=== PATIENT | male | born 1955 | race Caucasian/White ===

== ENCOUNTER 2016-07-03 18:34 | Observation (INO) | payer BC ==
[~2016-07-03] VITALS: Ht 190.5 cm; Wt 101.4 kg
--- NOTE | ~2016-07-03 | ECH ---
Transthoracic Echocardiography Report (TTE) Demographics Patient Name TIM BRIGHT Date of Study 07/04/2016 Patient Number [id number] Visit Number [id number] Date of 1955 Room Number 416 Accession Number [id number] Gender Male Age 60 year(s) Referring Ami Roman Rn Iv Therapy Morelia Campbell [facility] Physician Yamile Valdez MD Physician Interpreting Yamile Valdez Inpatient Auditor Physician MD Supervising Ordering Physician Ami Roman MD/P Nurse Stress Health Care / Medical Job Titles Conclusions Summary Technically fair exam. The estimated left ventricular ejection fraction is 60-65%. Mild left ventricular hypertrophy. The interatrial septum appears aneurysmal. There is no evidence of patent foramen ovale or atrial septal defect by color Doppler. The ascending aorta appears mildly dilated. The maximum diameter measures 3.57 cm. Procedure Type of Study TTE procedure:Echo Complete SF. Procedure Date Date: 07/04/2016 Start: 03:59 PM Technical Quality: Adequate visualization Indications:Atypical Chest Pain. Additional Indications:known PFO Appropriate Use Criteria: 9 Height: 75 inches Weight: 223 pounds BSA: 2.3 m Rhythm: Within normal limits HR: 63 bpm BP: 123/67 mmHg M-Mode/2D Measurements LV Diastolic Dimension: 4.91 cm LV Systolic Dimension: 3.39 cm LV Septum Diastolic: 1.18 cm LV PW Diastolic: 1.26 cm AO Root Dimension: 3.29 cm Cardiac Output: 4 l/min LA Dimension: 3.51 cm Cardiac Index: 1.74 l/min*m RV Diastolic Dimension: 2.95 cm LA volume index: 22 ml/m LVOT: 2.32 cm LVOT VTI: 15.03 cm RV Base: 4.3 cm LV Stroke volume: 63.5 ml RV Mid: 2.1 cm LV Stroke volume index: 27.61 ml/m Doppler Measurements AV Peak Velocity: 1 m/s MV Peak E-Wave: 0.56 m/s AV Peak Gradient: 4 mmHg MV Peak A-Wave: 0.53 m/s AV Mean Gradient: 2.6 mmHg MV E/A Ratio: 1.06 LVOT Peak Velocity: 0.71 m/s MV P1/2t: 81.1 msec AV Area (Continuity):2.8 cm MV Deceleration Time: 265.2 msec TR Velocity:1.81 m/s MV Area (PHT): 2.71 cm TR Gradient:13.09 mmHg PV Peak Velocity: 0.89 m/s Estimated RAP:5 mmHg PV Peak Gradient: 3.17 mmHg Estimated RVSP: 18 mmHg Estimated PASP: 18.09 mmHg RA Area: 17.57 cm Findings Left Ventricle The left ventricle is normal in size . Mild left ventricular hypertrophy. Diastolic assessment reveals normal relaxation. Right Ventricle Normal right ventricle structure and function. Left Atrium Normal left atrial size. The interatrial septum appears aneurysmal. There is no evidence of patent foramen ovale or atrial septal defect by color Doppler. Right Atrium Normal right atrial size. Mitral Valve Normal mitral valve structure and function. Aortic Valve Normal aortic valve structure and function. Tricuspid Valve Normal tricuspid valve structure and function. Trivial tricuspid regurgitation by color Doppler. Pulmonic Valve Normal pulmonic valve structure and function. Pericardial Effusion No evidence of pericardial effusion. Miscellaneous Visualized portions of the aortic root and appear normal in size. The ascending aorta appears mildly dilated. The maximum diameter measures 3.57 cm. Pleural Effusion No evidence of pleural effusion. Signature
[2016-07-05] MEDS ORDERED: SKELAXIN800 MG PO (18:38)
[2016-07-05] MEDS ORDERED: ZOCOR DPS40 MG PO (18:38)
[2016-07-05] MEDS ORDERED: ASA CHILDREN'S81 MG PO (18:38)
[2016-07-05] MEDS ORDERED: TYLENOL DPS325 MG PO (18:38)
--- NOTE | 2016-07-12 19:06 | HP ---
ADMIT: 07/03/2016 RM/LOC: 416 [facility] MR#: [id number] [id number] [address] TIM BRIGHT [address], [place] [address] History and Physical SEX: M AGE: 60 : 1955 DATE OF SERVICE: CHIEF COMPLAINT: Chest pain. HISTORY OF PRESENT ILLNESS: This is a 60-year-old male, patient of Dr. Mueller, who has a past medical history significant for hyperlipidemia and tobacco abuse, who was admitted with chest pain. The patient reports that tonight while having supper with his he had a sudden onset and severe mid back pain radiating up into his right-sided neck and bilateral jaw. He denies any associated shortness of breath, diaphoresis, nausea, vomiting, or worsening with exertion. 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 He also mentions that he has a history of spinal stenosis and has had similar symptoms in the past minus the jaw pain. He has seen Dr. Wise at the [facility] and has been told that spinal surgery will likely be needed at some point in the future. He does deny any pain, numbness, weakness, or tingling into his upper or lower extremities. In the Emergency Department, his vitals were noted to be stable.His initial cardiac enzymes, chest x-ray, and EKG were also normal. He was given nitroglycerin en route as well as in the Emergency Department, and his jaw pain resolved, but his back pain and neck are still bothering him. He also states that the back and neck pain is worse with movement. PAST MEDICAL HISTORY: 1. Hyperlipidemia. 2. Spinal stenosis. 3. Gout. 4. History of PFO. PAST SURGICAL HISTORY: 1. Tonsillectomy and adenoidectomy. 2. Bilateral knee scopes. 3. Right index finger surgery several years ago. MEDICATIONS: Simvastatin. ALLERGIES: CODEINE. SOCIAL HISTORY: He does smoke half a pack of cigarettes per day. He has done this for the past 40 years. He denies any alcohol or illegal drug use. FAMILY HISTORY: Significant for coronary artery disease. REVIEW OF SYSTEMS: A 10-point review of systems was reviewed and negative other than that stated above in the HPI. PHYSICAL EXAMINATION: VITAL SIGNS: Blood pressure 133/68, pulse 77, respirations 14, temp 97, and saturating 97% on room air. GENERAL: He is alert and oriented. He is in a moderate amount of distress due to his back spasms and is sitting very stiffly up in bed. ADMIT: 07/03/2016 RM/LOC: 416 [facility] MR#: [id number] [id number] [address] TIM BRIGHT [address] [place] [address] History and Physical SEX: M AGE: 60 : 1955 HEART: Regular rate and rhythm. He does have a 2/6 systolic murmur. LUNGS: Clear. ABDOMEN: Soft, nontender, nondistended. He has positive bowel sounds. EXTREMITIES: No lower extremity edema. MUSCULOSKELETAL: He has some right-sided thoracic paraspinal muscle tightness as well as right-sided cervical paraspinal muscle tightness. No bony tenderness over the spine. LABORATORY DATA: Sodium 141, potassium 3.8, creatinine 1.0, glucose 109, and magnesium 2.3. White count 9.8, hemoglobin 14.4, and platelets 167. CK 77, MB 0.8. Troponin was negative. Chest x-ray was negative. ASSESSMENT/PLAN: 1. Atypical chest pain. We will plan to trend his enzymes and EKGs overnight. We will also check a CBC, BMP, hemoglobin A1c, and lipids in the morning. He will likely need an outpatient stress test. 2. Back pain. This appears to be muscle spasm. We will order pain medicines as well as a muscle relaxant for tonight and check the cervical and thoracic x-rays in the morning. 3. Tobacco abuse. 4. Hyperlipidemia. Sammi Garg DO Resident / Allan Mueller MD / shilpi JOB #: [id number] CC: Demario Ovalle, Attending Physician Demario Ovalle, Family Physician
--- NOTE | 2016-07-14 20:32 | ER ---
ADMIT: 07/03/2016 RM/LOC: 416 [facility] MR#: [id number] [id number] [address] TIM BRIGHT [address] [place] [address] Emergency Room Report SEX: M AGE: 60 : 1955 DATE: 07/03/2016 See T-sheet for complete H and P. ADDENDUM: A 60-year-old male, history of patent foramen ovale and hyperlipidemia comes in with some complaints of pain in his upper back between the scapulae going into his neck and to his jaw. I did the cardiac routine on the patient in the Emergency Department, which shows no abnormal cardiac enzymes. He has a normal EKG, normal chest x-ray. He did receive nitroglycerin and did not have any change in his symptoms. He does have a strong family history of coronary artery disease with a brother, who at 60 and a mom with heart disease. At this point, we will plan on keeping the patient for further cardiac workup. He is admitted to Dr. Mueller's service with a diagnosis of chest pain in stable condition. Currently, chest pain free. Gerber Grigsby MD/ shilpi JOB #: [id number] CC: Demario Ovalle MD, Attending Physician Demario Ovalle MD, Family Physician
--- NOTE | 2016-07-19 17:24 | CO ---
ADMIT: 07/03/2016 RM/LOC: 416 [facility] MR#: [id number] [address] TIM BRIGHT [address] [place] [address] Consultation SEX: M AGE: 60 : 1955 DATE OF CONSULTATION: 07/04/2016 ATTENDING PHYSICIAN: Demario Ovalle CONSULTING PHYSICIAN: Yousif Ovalle MD REASON FOR CONSULT: Neck and jaw pain. Lilliana Melara RN, scribing for Yousif Ovalle MD. HISTORY OF PRESENT ILLNESS: Terrell is a very pleasant, 60-year-old gentleman I have been asked to see in Cardiology consultation by Dr. Mueller for neck and jaw pain. He has no prior history of coronary artery disease. He does have history of a small PFO per ANNE in August of 2007. Ejection fraction at that time was 60% with trace MR and aortic insufficiency. He has spinal stenosis history as well as tobacco history, about a half a pack per day for about 40 years. Terrell is treated also for high blood pressure. His family history of heart disease consists of a brother who of a myocardial infarction around the age of 60. He presented to [facility] last night via EMS with complaints of neck and jaw pain. He states that he was out to eat with his when he had pain that began in the back of his neck radiating up into the base of his head and in his shoulders. He went ahead and went out to eat, but when he went home, he began to have intense pain in his neck going into his jaw stating that "his teeth hurt." He has had back pain similar to what he was experiencing before, but never had pain in his jaw before. He denies any pain in his chest. He denies any diaphoresis, nausea, or shortness of breath. The pain was so intense that he was concerned and his called 911. He was brought into the hospital via EMS. Cardiac enzymes have been negative x3. His other lab work is essentially unremarkable and vital signs have been stable. EKG demonstrates possible early repolarization. Currently, he is pain free. He denies any recurrent discomfort since his admission. PAST MEDICAL HISTORY: Small PFO in 2008, spinal stenosis, osteoarthritis, and gout. PAST SURGICAL HISTORY: Includes tonsillectomy and adenoidectomy and bilateral total knee arthroplasty. ALLERGIES: CODEINE. CURRENT MEDICATIONS: Include; 1. Aspirin 81 daily. 2. Zocor 40 at bedtime. 3. Lovenox 40 subcutaneous daily. FAMILY HISTORY: Positive family history of heart disease in brother who had a myocardial infarction at the age of 60 and . Positive family history of cancer. Denies family history of diabetes or stroke. ADMIT: 07/03/2016 RM/LOC: 416 [facility] MR#: [id number] [id number] [address] [place] [address] Consultation SEX: M AGE: 60 : 1955 SOCIAL HISTORY: Terrell is . He lives at home with his . He does maintenance at [employer]. 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 He denies any special diet, caffeine, alcohol, or drug use. He smokes about a half pack per day and has done so for about 40 years. REVIEW OF SYSTEMS: GENERAL: Denies fatigue, fever, chills, sweats, rash, or weight loss. EYES: Denies double vision, blurred vision, cataracts, or glaucoma. ENT: Denies hearing loss or problems with nose, mouth or throat. PULMONARY: Denies cough, sputum production, asthma, emphysema or bronchitis. Denies snoring loudly, wakefulness at night, or fatigue upon awakening. GASTROINTESTINAL: Denies heartburn or difficulty swallowing. No change in bowel habits. Denies dark or bloody stools. No history of ulcers, hiatal hernia, or gallbladder or liver disease. GENITOURINARY: Denies dysuria, hematuria, nocturia, urinary tract infection, or kidney stones. Denies history of renal insufficiency or failure. MUSCULOSKELETAL: History of spinal stenosis, osteoarthritis, gout, and chronic muscle and joint pains. ENDOCRINE: Denies history of thyroid dysfunction or diabetes. HEMATOLOGIC: Denies history of anemia, easy bruising, or cancer. NEUROLOGIC: Denies chronic headaches, dizziness, syncope, stroke, seizures or numbness or tingling. PSYCHIATRIC: Denies history of mental illness or feelings of depression. PHYSICAL EXAMINATION: VITAL SIGNS: Blood pressure 104/59, heart rate 77, respirations 16, temperature 96.1, and oxygenation 97% on room air. SKIN: [place], warm and dry. EYES: Sclerae clear. No xanthelasmas. ENT: Oral mucosa is pink and moist. No jugular venous distention or carotid bruits. CHEST: Respirations are even and unlabored. Lungs are clear to auscultation. HEART: Regular rate and rhythm. Normal S1, S2. No murmurs, rubs or gallops. ABDOMEN: Soft and nontender. MUSCULOSKELETAL: Gait is normal. EXTREMITIES: Peripheral pulses palpable. No clubbing, cyanosis or edema. PSYCHIATRIC: Alert and oriented. Mood and affect are appropriate. DIAGNOSTIC DATA: Sodium 142, potassium 4.1, BUN 15, creatinine 0.9, glucose 102, and magnesium 9.7. Hemoglobin 14.4, hematocrit 42.9, and platelets 157. Cholesterol 142, triglycerides 96, HDL 37, and LDL 86. CK 72, MB 0.7, troponin less than 0.015. Hemoglobin A1c 6.2. ASSESSMENT AND PLAN: 1. Atypical chest pain. 2. Tobacco abuse. 3. Family history of coronary artery disease. 4. Hyperlipidemia. 5. Spinal stenosis. ADMIT: 07/03/2016 RM/LOC: 416 [facility] MR#: [id number] [address] TIM BRIGHT [address] [place] [id number] Consultation SEX: M AGE: 60 : 1955 Terrell is a pleasant 60-year-old gentleman with no prior history of coronary artery disease with known history of PFO. He was admitted with back pain while eating that radiated to the neck and back. He has history of smoking, hyperlipidemia, and family history for risk factors. EKG demonstrated early repolarization possibly with negative cardiac enzymes x3. Terrell's symptoms are atypical but he does have significant risk factors. I would like echocardiogram performed to evaluate for any wall motion abnormalities, valvular abnormalities, or decreased ejection fraction. If his echocardiogram shows normal wall motion and EF, I will plan on stress test in the morning and he may go home and have this performed as an outpatient. He will need Lexiscan due to chronic knee pain along with back pain as well as abnormal baseline EKG showing repolarization. I will add aspirin to his medication for home med list and have him continue on statin medication. Thank you for the consultation. I have read and agree with the documentation that has been completed regarding this visit. By signing this record, I attest that the documentation was completed in my physical presence and is an accurate record of the encounter. Lilliana Mealra RN / Yousif Ovalle MD / shilpi JOB #: [id number] CC: Demario Ovalle, Attending Physician Demario vOalle, Family Physician
== END 2016-07-04 17:44 | disposition home or self-care (01) ==
LOC: ER 18:34 → 4PCU 19:45
PROVIDERS: ADMIT Family Medicine
DX: R07.89 Other chest pain (principal); M54.9 Dorsalgia, unspecified; E78.5 Hyperlipidemia, unspecified; F17.210 Nicotine dependence, cigarettes, uncomplicated; M10.9 Gout, unspecified; M48.00 Spinal stenosis, site unspecified; M19.90 Unspecified osteoarthritis, unspecified site; Z88.6 Allergy status to analgesic agent; Z79.82 Long term (current) use of aspirin; Z98.890 Other specified postprocedural states; Z79.899 Other long term (current) drug therapy

== ENCOUNTER → 2016-07-08 | Outpatient (CLI) | payer BC ==
[~2016-07-08] MED LIST: ASA CHILDREN'S81 MG PO; SKELAXIN800 MG PO; TYLENOL DPS325 MG PO; ZOCOR DPS40 MG PO
--- NOTE | ~2016-07-08 | CST ---
Cardiac Perfusion Imaging Demographics Patient Name KAILA Ko Gender Male Patient Number [id number] Race Visit Number [id number] Ethnicity Corporate ID Room Number Accession Number [id number] Height 73 inches Date of 1955 Weight 220 pounds Age 60 year(s) BSA 2.24 m Referring Physician Yamile Valdez BMI 29.03 kg/m Interpreting [facility] Date of study 07/08/2016 Physician King Zachariah Nur MD Supervising MD/MLP Yamile Valdez NM Technologist Prachi Andrews, [facility] Ordering Physician Yamile Valdez Stress Juan Miguel Saravia MD alarm service technician Stress ECG Reading [facility] Nurse Mani Lamb Physician King Zachariah Menjivar The procedure was explained in detail to the patient. Risks, complications and alternative treatments were reviewed. Written consent was obtained. Medications Reviewed with Patient prior to Procedure. Procedure Procedure Type: Nuclear Stress Test:Pharmacological, Lexiscan Procedure Start time: 07/08/2016 08:45 Indications: Chest pain, Jaw Pain, Hyperlipidemia and Family history of coronary artery disease. Risk Factors The patient risk factors include:former tobacco use, treated hypercholesterolemia and family history of premature CAD. Conclusions Summary Perfusion Images: The overall quality of the study is good. Left ventricular cavity is noted to be normal on the stress and rest studies. There is no evidence of abnormal lung activity. The right ventricle is not visualized and cannot be assessed. Stress SPECT images demonstrate homogenous tracer distribution throughout the myocardium. Rest SPECT images demonstrate homogenous tracer distribution throughout the myocardium. Gated SPECT imaging reveals normal myocardial thickening and wall motion. The left ventricular ejection fraction was calculated to be 61%. Impression ECG portion of stress test is clinically negative for ischemia by diagnostic criteria. Myocardial perfusion imaging is normal. Overall left ventricular systolic function was normal without regional wall motion abnormalities. There are no previous studies for comparison. Stress Protocols Resting ECG Normal sinus rhythm. Resting HR:61 bpm Resting BP:114/80 mmHg Stress Protocol:Pharmacologic Predicted HR: 161 bpm Test duration: 06:00 min Reason for termination:Infusion complete ECG Findings Normal sinus rhythm. Complications Procedure complication: None. Stress Interpretation Appropriate hemodynamic response to Lexiscan. No significant ST-T wave changes with Lexiscan. ECG portion is negative for ischemia by diagnostic criteria. Imaging Results Summed scores - Summed stress score: 2 - Summed rest score: 0 - Summed difference score: 2 Stress ejection Ejection fraction:61 % EDV :160 ml ESV :63 ml Stroke volume :97 ml LV mass :177 gr Imaging Protocols Rest Stress Isotope:Tc99m Myoview IV Isotope: Tc99m Myoview IV Isotope dose:10.5 mCi Isotope dose:30.5 mCi Date:07/08/2016 06:30 Date:07/08/2016 08:45 Technique: SPECT Technique: Gated Supine SPECT Supine Scan Time:45-60 minutes post Scan Time:45-60 minutes post injection injection Procedure Medications - Regadenoson (Lexiscan) 0.4 mg IV over 10-15 sec. I.V. 0.4 mg. Medications administered per verbal order and read back to physician prior to administration. Medical History Admission Data Admission date: 07/08/2016 Admission Time: 07:29 Hospital Status: Outpatient. Signatures
== END | disposition home or self-care (01) ==
LOC: CARD 07:29
DX: R07.9 Chest pain, unspecified (principal)

== ENCOUNTER → 2016-09-09 | Outpatient (CLI) | payer BC | END | disposition home or self-care (01) | LOC: PTH.S 14:44 | DX: R19.7 Diarrhea, unspecified (principal) ==

== ENCOUNTER → 2016-09-11 | Outpatient (CLI) | payer BC | END | disposition home or self-care (01) | LOC: PTH.S 09-10 16:30 | DX: R19.7 Diarrhea, unspecified (principal) ==